=== PATIENT | female | born 1990 | race Caucasian/White ===

== ENCOUNTER 2021-07-02 06:05 | Inpatient (IN) ==
[2021-07-02] MEDS ORDERED: BUTORPHANOL 2 MG/ML VIAL IV PRN (06:28)
[2021-07-02] MEDS ORDERED: ONDANSETRON 4 MG/2 ML VIAL IV PRN (06:28)
[2021-07-02] MEDS ORDERED: MEPERIDINE 50 MG/1 ML VIAL IV PRN (06:28)
[2021-07-02 06:57] LABS: Basophils % 0.3 % (0.0-0.8); Eosinophils # 0.1 10*3/uL (0.0-0.87); Eosinophils % 1.1 % (0.00-10.9); Hemoglobin 12.2 GM/DL (12.0-16.0); Immature Granulocytes % 0.6 %; Immature Granulocytes Absolute 0.06 #; Lymphocytes # 1.6 10*3/uL (1.4-4.0); Lymphocytes % 15.7 % (21.3-54.2); Mean Corpuscular HGB Conc 32.1 GM/DL (32-36); Mean Corpuscular Volume 86.2 FL (87-102); Mean Platelet Volume 9.9 FL (9.6-12.0); Monocytes % 4.9 % (1.7-12.7); Neutrophils % 77.4 % (38.7-73.9); Platelet Count 278 T/CUMM (130-400); Red Blood Count 4.41 MC/CUMM (3.8-5.5); Red Cell Distribution Width 13.6 % (9.3-17.3); White Blood Count 10.4 T/CUMM (4-12)
[2021-07-02 07:06] LABS: Alanine Aminotransferase 12 U/L (13-56); Albumin 2.5 G/DL (3.4-5.0); Alkaline Phosphatase 137 U/L (45-117); Aspartate Amino Transferase 9 U/L (0-37); Bilirubin,Total < 0.39 MG/DL (0.20-1.00); Blood Urea Nitrogen 11 MG/DL (7-18); Calcium 9.4 MG/DL (8.5-10.1); Carbon Dioxide 21 MMOL/L (21-32); Estimated Glom Filtration Rate 134 ML/MIN; Glucose 119 MG/DL (74-106); Osmolality,Calculated 274.7 MOS/KG (273-304); Potassium 3.6 MMOL/L (3.5-5.1); Sodium 138 MMOL/L (136-145); Total Protein 6.9 G/DL (6.4-8.2)
[2021-07-02] MEDS: LACTATED RINGERS 1,000 ML IV SCH ×2 (07:25→19:15)
[2021-07-02 07:52] LABS: Hepatitis B Surface Ag Quant < 0.10 Index; Hepatitis B Surface Ag Result Non-Reactive (NonReactive)
[2021-07-02] MEDS ORDERED: OXYTOCIN/LR 20 UNIT/1,000 ML BAG IV SCH (10:00)
[2021-07-02] MEDS: FAMOTIDINE 20 MG/2 ML VIAL IV SCH (10:52)
[2021-07-02] MEDS ORDERED: diphenhydrAMINE 50 MG/1 ML VIAL IV PRN ×2 (12:12)
[2021-07-02] MEDS ORDERED: ONDANSETRON 4 MG/2 ML VIAL IV ONE (12:12)
[2021-07-02] MEDS ORDERED: PROMETHAZINE 25 MG/1 ML VIAL IM ONE (12:12)
[2021-07-02] MEDS ORDERED: LACTATED RINGERS 250 ML IV PRN (12:12)
[2021-07-02] MEDS ORDERED: hydrOXYzine HCL 25 MG/1 ML VIAL IM PRN (12:12)
[2021-07-02] MEDS ORDERED: NALOXONE 0.4 MG/ML VIAL IV PRN (12:12)
[2021-07-02] MEDS ORDERED: ePHEDrine 50 MG/ML VIAL IV PRN (12:12)
[2021-07-02] MEDS ORDERED: LACTATED RINGERS 1,000 ML IV ONE (12:13)
[2021-07-02] MEDS ORDERED: CITRIC ACID/SODIUM CITRATE 30 ML UDCUP PO ONE (12:13)
[2021-07-02] MEDS ORDERED: fentaNYL 2 MCG/ROPIV 0.2% EPID 100 ML EPIDURAL SCH (12:30)
[2021-07-02 14:06] LABS: Bilirubin,Urine Negative (Negative); Blood, Urine Negative (Negative); Glucose,Urine (UA) Negative (Negative); Ketones,Urine Negative (Negative); Nitrite,Urine Negative (Negative); Protein,Urine Negative; Urine Appearance CLEAR (Clear); Urine Color Yellow (Yellow); Urine Specific Gravity 1.015 (1.001-1.035); Urine Urobilinogen < 2.0 EU/DL (<2.0)
[2021-07-02 14:10] LABS: Mucus,Urine Occasional /LPF (Occasional); Squamous Epithelial Cell,Urine Occasional /HPF (0-10)
[2021-07-02] MEDS ORDERED: ACETAMINOPHEN 500 MG TABLET PO ONE (17:21)
[2021-07-02] MEDS ORDERED: miSOPROStoL 200 MCG TABLET ONE (17:29)
[2021-07-02] MEDS ORDERED: TRANEXAMIC ACID 1,000 MG/10 ML VIAL ONE (17:29)
[2021-07-02] MEDS ORDERED: METHYLERGONOVINE 0.2 MG/1 ML AMP ONE (17:30)
[2021-07-02] MEDS ORDERED: CARBOPROST TROMETHAMINE 250 MCG/ML AMP IM ONE (17:30)
[2021-07-02] MEDS ORDERED: ceFAZolin 2,000 MG/50 ML DUPLEX IV ONE (22:06)
[2021-07-02] MEDS ORDERED: PHENYLEPHRINE 1 MG/10 ML SYRINGE IV ONE (22:50)
[2021-07-02] MEDS ORDERED: METOCLOPRAMIDE 10 MG/2 ML VIAL ONE (22:50)
[2021-07-02] MEDS ORDERED: BUPIVACAINE MPF 0.5% /EPI 30 ML VIAL ONE (22:50)
[2021-07-02] MEDS ORDERED: ONDANSETRON 4 MG/2 ML VIAL ONE (22:50)
[2021-07-02] MEDS ORDERED: METHYLERGONOVINE 0.2 MG/1 ML AMP IM ONE (23:05)
[2021-07-02] MEDS ORDERED: OXYTOCIN 10 UNIT/ML VIAL ONE (23:09)
[2021-07-02] MEDS ORDERED: MIDAZOLAM 2 MG/2 ML VIAL ONE (23:17)
[2021-07-02 23:25] LABS: Cord Venous Blood HCO3 23.2 MMOL/L; Cord Venous Blood PCO2 44.8 MMHG; Cord Venous Blood PO2 24.9
[2021-07-02] MEDS ORDERED: ACETAMINOPHEN INJ 1,000 MG/100 ML VIAL IV ONE (23:50)
[2021-07-03 01:40] LABS: Hematocrit 34.7 VOL% (35.7-47.0); Hemoglobin 11.1 GM/DL (12.0-16.0)
[2021-07-03] MEDS: KETOROLAC 30 MG/1 ML VIAL IV SCH ×3 (02:20→14:35)
[2021-07-03] MEDS: ACETAMINOPHEN 500 MG TABLET PO PRN ×3 (02:20→14:34)
[2021-07-03 07:03] LABS: Hematocrit 30.8 VOL% (35.7-47.0); Hemoglobin 9.7 GM/DL (12.0-16.0)
[2021-07-03] MEDS: FAMOTIDINE 20 MG/2 ML VIAL IV SCH (10:00)
[2021-07-03] MEDS: DOCUSATE SODIUM 100 MG CAPSULE PO SCH ×2 (14:54→20:59)
[2021-07-03] MEDS ORDERED: ACETAMINOPHEN 500 MG TABLET PO PRN (20:38)
[2021-07-04] MEDS: FAMOTIDINE 20 MG/2 ML VIAL IV SCH (00:34)
[2021-07-04] MEDS ORDERED: oxyCODONE/ACETAMINOPHEN 5-325 MG TABLET PO PRN ×2 (00:58→05:27)
[2021-07-04] MEDS: SIMETHICONE CHEW 80 MG TABLET PO PRN ×2 (02:48→12:03)
[2021-07-04] MEDS: oxyCODONE/ACETAMINOPHEN 5-325 MG TABLET PO PRN ×2 (05:31→12:02)
[2021-07-04] MEDS ORDERED: FERROUS SULFATE 325 MG TABLET PO SCH ×2 (09:00→18:15)
[2021-07-04] MEDS: DOCUSATE SODIUM 100 MG CAPSULE PO SCH (09:30)
[2021-07-04] MEDS ORDERED: MEASLES/MUMPS/RUBELLA VACCINE 0.5 ML VIAL SUBCUT ONE (09:31)
[2021-07-04 09:54] VITALS: BP 127/79
== END 2021-07-04 14:43 | disposition home or self-care (01) | DRG 788 ==
LOC: N.LDOUT 06:05 → N.LD 06:07 → N.OB 07-03 03:00
PROVIDERS: ADMIT Obstetrics & Gynecology; ATTEND Obstetrics & Gynecology
PROC: LDCSECT (ICD-10-PCS; 2021-07-02 22:00)